=== PATIENT | male | born 2000 | race Caucasian/White ===

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

== ENCOUNTER 2018-08-07 05:25 | Emergency (ER) | payer SELFPAY ==
[~2018-08-07] VITALS: Ht 177.8 cm; Wt 93.6 kg
[2018-08-07 05:31] VITALS: BP 165/80
[2018-08-07 06:25] LABS: CARBON DIOXIDE 30.5 mmol/L (21-32); POTASSIUM 3.5 mmol/L (3.5-5.1)
[2018-08-07 06:26] LABS: CREATININE 1.1 mg/dL (0.7-1.3)
[2018-08-07 06:27] LABS: ALBUMIN 4.2 g/dL (3.4-5.0); TOTAL BILIRUBIN 0.4 mg/dL (0.0-1.0)
[2018-08-07 06:45] VITALS: BP 150/72
[2018-08-07 08:43] LABS: RED BLOOD CELL COUNT(AUTO) 5.78 MIL/uL (4.20-6.10); WHITE BLOOD COUNT (AUTO) 8.7 K/uL (4.5-11.0)
[2018-08-07 08:44] LABS: HEMOGLOBIN 16.3 g/dL (12.0-18.0); MEAN CORPUSCULAR HEMOGLOBIN 28 pg (27-31); MEAN CORPUSCULAR HGB CONC 33 g/dL (33-37); PLATELET COUNT (AUTO) 276 K/uL (140-450)
[2018-08-07 08:45] LABS: BASOPHILS % (MANUAL) 0 % (0-2); EOSINOPHILS % (MANUAL) 1 % (0-4); LYMPHOCYTES % (MANUAL) 28 % (20-46); MONOCYTES % (MANUAL) 6 % (5-12)
== END 2018-08-07 06:45 | disposition home or self-care (01) ==
LOC: MED 05:25
DX: R00.2 Palpitations (principal)
CPT/HCPCS: 36415; 80053; 84443; 85025; 93005; 99285

== ENCOUNTER 2020-03-21 16:29 | Emergency (ER) | payer OTHER ==
[~2020-03-21] VITALS: Ht 177.8 cm; Wt 83.9 kg
--- NOTE | 2020-03-21 16:29 | NUR ---
Patient BIBA BLS, transferred to bed 6. RN evaluating patient at bedside.
[2020-03-21 16:30] VITALS: BP 138/90
--- NOTE | 2020-03-21 16:33 | NUR ---
19 YO Male , BIBA c/o Anxiety and fatigue . Pt states he has been dealing anxiety "long time" and having heart palpatations "since the heat started." Pt states he works nights and has kids at home , so is unable to get a good amount of sleep. Pt denies drug and alcohol use. NAD noted. VSS. Breathing even and unlabored. Pt resting in bed at lowest position, HOB elevated , side rails X1. medhx: none rx: none
--- NOTE | 2020-03-21 16:41 | NUR ---
OBTAINED REPORT FROM JASMIN LEACH FOR CONTINUITY OF CARE
--- NOTE | 2020-03-21 16:42 | NUR ---
PT RESTING IN BED, SIDE RAIL X1
--- NOTE | 2020-03-21 16:45 | NUR ---
SHANDRA at [facility] for medical evaluation
[2020-03-21] MEDS ORDERED: NACL 0.9% 1,000 ML IV SCH (16:46)
[2020-03-21 17:22] LABS: BASOPHILS % (AUTO) 0.4 % (0.0-2.0); EOSINOPHILS # (AUTO) 0.1 K/uL (0-0.4); EOSINOPHILS % (AUTO) 1.3 % (0.0-4.0); HEMATOCRIT 43.2 % (36-52); HEMOGLOBIN 14.7 g/dL (12.0-18.0); LYMPHOCYTES # (AUTO) 1.9 K/uL (2.0-11.5); LYMPHOCYTES % (AUTO) 30.8 % (20.5-51.1); MEAN CORPUSCULAR HEMOGLOBIN 29 pg (27-31); MEAN CORPUSCULAR HGB CONC 34 g/dL (33-37); MEAN CORPUSCULAR VOLUME 83.9 fL (80-94); MONOCYTES # (AUTO) 0.5 K/uL (0.8-1.0); MONOCYTES % (AUTO) 8.5 % (1.7-9.3); NEUTROPHILS # (AUTO) 3.6 K/uL (1.8-7.7); PLATELET COUNT (AUTO) 260 K/uL (140-450); RED BLOOD CELL COUNT(AUTO) 5.15 MIL/uL (4.20-6.10); RED CELL DISTRIBUTION WIDTH 13.7 % (11.6-13.7)
[2020-03-21] MEDS ORDERED: LORazepam 2 MG/ML VIAL IVP ONE (17:35)
--- NOTE | 2020-03-21 17:52 | NUR ---
Dr. Guzman is re-evaluating the patient at bedside.
--- NOTE | 2020-03-21 18:00 | NUR ---
PT STATES LESS ANXIETY AFTER ATIVAN
[2020-03-21 18:04] VITALS: BP 135/71
--- NOTE | 2020-03-21 18:04 | NUR ---
NADR, PAIN 0/10
--- NOTE | 2020-03-21 18:04 | NUR ---
Patient discharged with v/s stable. Written and verbal after care instructions given and explained. Patient alert, oriented and verbalized understanding of instructions. Ambulatory with steady gait. All questions addressed prior to discharge. ID band removed. Patient advised to follow up with PMD. Rx of AMBIEN FOR INSOMNIA given. Patient educated on indication of medication including possible reaction and side effects. Opportunity to ask questions provided and answered. PT GIVEN EXCUSE FOR WORK THROUGH 03/22/20.
== END 2020-03-21 18:04 | disposition home or self-care (01) ==
LOC: MED 16:29
DX: F41.9 Anxiety disorder, unspecified (principal); G47.00 Insomnia, unspecified; R03.0 Elevated blood-pressure reading, without diagnosis of hypertension
CPT/HCPCS: 36415; 85025; 93005; 96374; 99284; J2060; J7030

== ENCOUNTER 2020-03-23 10:43 | Emergency (ER) | payer OTHER ==
[~2020-03-23] VITALS: Ht 177.8 cm; Wt 88.5 kg
[2020-03-23 10:46] VITALS: BP 154/86
--- NOTE | 2020-03-23 11:01 | NUR ---
RECEIVED A 19/M FROM TRIAGE WITH C/O RAPID HR SECONDARY TO ANIXETY. PT REPORTS HE WAS SHOPPING AND BEGAN TO FEEL VERY ANXIOUS AND REPORTS THAT HE FELT PALPITATIONS. PT PLACED ON CONTINOUS CARDIAC MONITORING -- HR 77 AT THIS TIME.
[2020-03-23 11:28] VITALS: BP 135/82
== END 2020-03-23 11:28 | disposition home or self-care (01) ==
LOC: MED 10:43
DX: R00.2 Palpitations (principal); R41.9 Unspecified symptoms and signs involving cognitive functions and awareness
CPT/HCPCS: 93005; 99283

== ENCOUNTER 2021-03-31 13:50 | Emergency (ER) | payer OTHER ==
[~2021-03-31] VITALS: Ht 177.8 cm; Wt 90.3 kg
[2021-03-31 13:53] VITALS: BP 157/92
--- NOTE | 2021-03-31 14:00 | NUR ---
20 Y/O MALE C/O TACHYCARDIA [id number]. PT STATES HE SAW A OCO AND WAS TOLD IT WAS ANXIETY PRESCRIBED RX BUT DOES NOT COMPLY BECAUSE IT MAKES HIM DROWSY. PT STATES HE FEELS PALPITATIONS OCCASIONALLY. PMH: ANXIETY NKA
[2021-03-31 14:30] LABS: BASOPHILS % (AUTO) 0.7 % (0.0-2.0); EOSINOPHILS # (AUTO) 0.2 K/uL (0-0.4); EOSINOPHILS % (AUTO) 2.9 % (0.0-4.0); HEMATOCRIT 44.3 % (36-52); HEMOGLOBIN 15.4 g/dL (12.0-18.0); LYMPHOCYTES # (AUTO) 1.7 K/uL (2.0-11.5); LYMPHOCYTES % (AUTO) 25.5 % (20.5-51.1); MEAN CORPUSCULAR HEMOGLOBIN 29 pg (27-31); MEAN CORPUSCULAR HGB CONC 35 g/dL (33-37); MEAN CORPUSCULAR VOLUME 83.2 fL (80-94); MONOCYTES # (AUTO) 0.5 K/uL (0.8-1.0); MONOCYTES % (AUTO) 6.9 % (1.7-9.3); NEUTROPHILS # (AUTO) 4.3 K/uL (1.8-7.7); PLATELET COUNT (AUTO) 274 K/uL (140-450); RED BLOOD CELL COUNT(AUTO) 5.32 MIL/uL (4.20-6.10); RED CELL DISTRIBUTION WIDTH 12.8 % (11.6-13.7); WHITE BLOOD COUNT (AUTO) 6.8 K/uL (4.8-10.8)
[2021-03-31 14:59] LABS: ALBUMIN 4.1 g/dL (3.4-5.0); ANION GAP 7.3 (8-16); CARBON DIOXIDE 31.5 mmol/L (21-32); CREATININE 1.1 mg/dL (0.6-1.3); FREE T4 (FREE THYROXINE) 0.9 ng/dL (0.76-1.46); POTASSIUM 3.8 mmol/L (3.5-5.1); THYROID STIMULATING HORMONE 1.33 uIU/mL (0.34-3.74); TOTAL BILIRUBIN 0.3 mg/dL (0.0-1.0)
[2021-03-31] MEDS ORDERED: ATA25 PO (15:08)
[2021-03-31 15:20] VITALS: BP 157/92
== END 2021-03-31 15:20 | disposition home or self-care (01) ==
LOC: MED 13:50
DX: F41.9 Anxiety disorder, unspecified (principal); R00.2 Palpitations; Z79.899 Other long term (current) drug therapy
CPT/HCPCS: 36415; 71045; 80053; 84439; 84443; 85025; 93005; 99285

== ENCOUNTER 2022-01-23 17:07 | Emergency (ER) | payer OTHER ==
[~2022-01-23] VITALS: Ht 177.8 cm; Wt 91.6 kg
[~2022-01-23 17:07] MED LIST: ATA25 PO
[2022-01-23 17:39] VITALS: BP 149/78
--- NOTE | 2022-01-23 18:56 | NUR ---
21yo m c/o arrhythmia x 1 day. pt also complains of chest pain radiating to left arm, (+)tingling sensation, (-)numbness. no meds taken. pmh: anxiety meds: unrecalled nka
[2022-01-23] MEDS ORDERED: OMEP20EC11 PO (19:00)
[2022-01-23 19:15] VITALS: BP 149/78
--- NOTE | 2022-01-23 19:15 | NUR ---
Patient discharged with v/s stable. Written and verbal after care instructions given and explained. Patient alert, oriented and verbalized understanding of instructions. Ambulatory with steady gait. All questions addressed prior to discharge. ID band removed. Patient advised to follow up with PMD. Rx of omeprazole given. Patient educated on indication of medication including possible reaction and side effects. Opportunity to ask questions provided and answered.
== END 2022-01-23 19:10 | disposition home or self-care (01) ==
LOC: MED 17:07
DX: R00.2 Palpitations (principal); F41.9 Anxiety disorder, unspecified; Z79.899 Other long term (current) drug therapy
CPT/HCPCS: 93005; 99283

== ENCOUNTER 2022-02-22 23:54 | Emergency (ER) | payer OTHER ==
[~2022-02-22] VITALS: Ht 177.8 cm; Wt 93.4 kg
[~2022-02-22 23:54] MED LIST changes: +OMEP20EC11 PO
--- NOTE | 2022-02-23 00:10 | NUR ---
pt to chair b
[2022-02-23 00:29] VITALS: BP 147/84
--- NOTE | 2022-02-23 00:34 | NUR ---
pt to lobby
--- NOTE | 2022-02-23 00:34 | NUR ---
ERMD examining patient
[2022-02-23] MEDS ORDERED: IBUPROFEN 600 MG TAB PO ONE (00:35)
--- NOTE | 2022-02-23 00:47 | NUR ---
pt to xr
--- NOTE | 2022-02-23 00:57 | NUR ---
PT RETURN TO ER LOBBY FROM RAD
[2022-02-23] MEDS ORDERED: NAPR-54 PO (01:40)
--- NOTE | 2022-02-23 01:41 | NUR ---
PT TAKEN TO BED 7
--- NOTE | 2022-02-23 01:42 | NUR ---
Dr. Hernandez examining patient.
[2022-02-23 01:44] VITALS: BP 147/84
--- NOTE | 2022-02-23 01:45 | NUR ---
Chart checked and completed. The patient's care was reviewed and supervised by Carmen Bartlett RN.
== END 2022-02-23 01:44 | disposition home or self-care (01) ==
LOC: MED 23:54
DX: S33.9XXA Sprain of unspecified parts of lumbar spine and pelvis, initial encounter (principal); Z79.899 Other long term (current) drug therapy; V89.2XXA Person injured in unspecified motor-vehicle accident, traffic, initial encounter; Y93.89 Activity, other specified; Y92.89 Other specified places as the place of occurrence of the external cause; Y99.8 Other external cause status
CPT/HCPCS: 72110; 99283

== ENCOUNTER 2022-08-29 16:24 | Emergency (ER) | payer OTHER ==
[~2022-08-29] VITALS: Ht 177.8 cm; Wt 97.5 kg
[~2022-08-29 16:24] MED LIST changes: +NAPR-54 PO
[2022-08-29 16:28] VITALS: BP 147/80
--- NOTE | 2022-08-29 16:51 | NUR ---
ARELI CAMARGO AT PT SIDE FOR EVAL
--- NOTE | 2022-08-29 16:59 | NUR ---
C/O HEADACHE INTERMITTENT SHARP PAINS X2 WEEKS, DENIES ANY MEDICATION FOR PAIN, INTERMITTENT, DENIES SOB, CHEST PAIN, DENIES TRAUMA/INJURY NKA PMH: DENIES
--- NOTE | 2022-08-29 17:17 | NUR ---
Patient discharged with v/s stable. Written and verbal after care instructions ABOUT MEDICAL SCREENING EXAM AND GENERAL HEADAHE WITHOUT CAUSE given and explained. Patient verbalized understanding. Ambulatory with steady gait. All questions addressed prior to discharge. Advised to follow up with PMD.
== END 2022-08-29 17:17 | disposition home or self-care (01) ==
LOC: MED 16:24
DX: R51.9 Headache, unspecified (principal); Z72.89 Other problems related to lifestyle
CPT/HCPCS: 99281

== ENCOUNTER 2023-04-15 16:45 | Emergency (ER) | payer OTHER ==
[~2023-04-15] VITALS: Ht 177.8 cm; Wt 90.7 kg
[2023-04-15 17:07] VITALS: BP 144/75
[2023-04-15 17:47] LABS: APPEARANCE,URINE CLOUDY (CLEAR); BILIRUBIN,URINE NEGATIVE (NEGATIVE); BLOOD, URINE 3+ (NEGATIVE); COLOR,URINE YELLOW (YELLOW); LEUKOCYTE ESTERASE ,URINE 2+ (NEGATIVE); NITRITE, URINE POSITIVE (NEGATIVE); UGLUCOSE NEGATIVE (NEGATIVE)
[2023-04-15 17:55] LABS: RBC,URINE 20-50 /HPF (0-5)
[2023-04-15 17:56] LABS: RED BLOOD CELL CASTS,URINE 0-10 /LPF (None Seen)
[2023-04-15] MEDS ORDERED: IBUP-2213 PO (18:39)
[2023-04-15] MEDS ORDERED: CEPH-588 PO (18:39)
[2023-04-15 18:56] VITALS: BP 140/74
--- NOTE | 2023-04-15 18:56 | NUR ---
Patient discharged with v/s stable. Written and verbal after care instructions given and explained. Patient alert, oriented and verbalized understanding of instructions. Ambulatory with steady gait. All questions addressed prior to discharge. ID band removed. Patient advised to follow up with PMD. Rx of keflex,ibuprofen given. Patient educated on indication of medication including possible reaction and side effects. Opportunity to ask questions provided and answered.
== END 2023-04-15 18:56 | disposition home or self-care (01) ==
LOC: MED 16:45
DX: N39.0 Urinary tract infection, site not specified (principal); K21.9 Gastro-esophageal reflux disease without esophagitis; Z79.899 Other long term (current) drug therapy; Z79.1 Long term (current) use of non-steroidal anti-inflammatories (NSAID); Z79.2 Long term (current) use of antibiotics
CPT/HCPCS: 81001; 87086; 99283